=== PATIENT | male | born 1955 | race Caucasian/White ===

== ENCOUNTER 2019-12-30 19:17 | Inpatient (IN) ==
[2019-12-30] MEDS ORDERED: ASPIRIN 325 MG TABLET PO STA (19:42)
[2019-12-30] MEDS ORDERED: ONDANSETRON 4 MG/2 ML VIAL IV STA (19:50)
[2019-12-30] MEDS ORDERED: NITROGLYCERIN 2% OINT 1 INCH/GM PACK TOP STA (19:50)
[2019-12-30] MEDS ORDERED: ALUM/MAG/SIMETH/LIDO VISC 1:1 30 ML BOTTLE PO STA (19:50)
[2019-12-30] MEDS ORDERED: MORPHINE 4 MG/1 ML VIAL IV STA (19:50)
[2019-12-30 19:59] LABS: Basophils # 0.1 10*3/uL (0.0-0.2); Basophils % 0.4 % (0.0-0.8); Eosinophils # 0.1 10*3/uL (0.0-0.87); Eosinophils % 0.4 % (0.00-10.9); Hematocrit 40.6 VOL% (42.0-52.0); Hemoglobin 14.1 GM/DL (14.0-18.0); Immature Granulocytes % 0.6 %; Immature Granulocytes Absolute 0.08 #; Lymphocytes # 3.2 10*3/uL (1.4-4.0); Lymphocytes % 24.4 % (21.2-54.2); Mean Corpuscular HGB Conc 34.7 GM/DL (32-36); Mean Platelet Volume 10.1 FL (9.6-12.0); Monocytes % 7.6 % (1.7-12.7); Neutrophils % 66.6 % (38.7-73.9); Platelet Count 186 T/CUMM (130-400); Red Blood Count 4.32 MC/CUMM (3.8-5.5); Red Cell Distribution Width 12.5 % (9.3-17.3); White Blood Count 13.1 T/CUMM (4-12)
[2019-12-30 20:08] LABS: PT Patient Result 10.3 SECS (9.8-11.9)
[2019-12-30 20:25] LABS: Alanine Aminotransferase 64 U/L (16-61); Albumin 4.1 G/DL (3.4-5.0); Alkaline Phosphatase 86 U/L (45-117); Aspartate Amino Transferase 388 U/L (0-37); Bilirubin,Total < 0.39 MG/DL (0.2-1.0); Blood Urea Nitrogen 7 MG/DL (7-18); CKMB % 10.5 %; Calcium 8.9 MG/DL (8.5-10.1); Estimated Glom Filtration Rate 86 ML/MIN; Glucose 92 MG/DL (74-106); Osmolality,Calculated 270.8 MOS/KG (273-304); Total Protein 6.6 G/DL (6.4-8.3)
[2019-12-30] MEDS ORDERED: ENOXAPARIN 100 MG/ML SYRINGE SUBCUT STA (20:35)
[2019-12-30] MEDS ORDERED: HEPARIN/NACL 0.9% 2 UNITS/ML 1,000 ML IV ONE (21:11)
[2019-12-30] MEDS ORDERED: LIDOCAINE 1% 20 ML VIAL ONE (21:11)
[2019-12-30] MEDS ORDERED: HYDROmorphone 2 MG/1 ML VIAL ONE (21:24)
[2019-12-30] MEDS ORDERED: MIDAZOLAM 2 MG/2 ML VIAL ONE (21:24)
[2019-12-30] MEDS ORDERED: BIVALIRUDIN 250 MG VIAL IV ONE (21:50)
[2019-12-30] MEDS ORDERED: TIROFIBAN 5,000 MCG/100 ML PREMIX IV ONE (21:52)
[2019-12-30] MEDS ORDERED: ENOXAPARIN 60 MG/0.6 ML SYRINGE ONE (21:55)
[2019-12-30] MEDS ORDERED: TIROFIBAN 5,000 MCG/100 ML PREMIX IV SCH (21:58)
[2019-12-30] MEDS ORDERED: TICAGRELOR 90 MG TABLET ONE (22:28)
[2019-12-30] MEDS ORDERED: NITROGLYCERIN SL 0.4 MG TABLET SL PRN (22:40)
[2019-12-30] MEDS ORDERED: ZALEPLON 5 MG CAPSULE PO PRN (22:40)
[2019-12-30] MEDS ORDERED: ONDANSETRON 4 MG/2 ML VIAL IV PRN (22:40)
[2019-12-30] MEDS ORDERED: SODIUM CHLORIDE 0.9% 1,000 ML IV SCH (23:00)
[2019-12-31] MEDS ORDERED: PNEUMOCOCCAL VACCINE (23 VALENT) 0.5 ML VIAL IM ONE (00:24)
[2019-12-31 00:43] LABS: CKMB % 10.3 %
[2019-12-31 00:45] LABS: Troponin I > 200.000 NG/ML (0.00-0.045)
[2019-12-31 02:09] LABS: Risk Ratio 6.18; VLDL CHOLESTEROL 53.4 MG/DL
[2019-12-31 02:12] LABS: Calcium 8.2 MG/DL (8.5-10.1); Osmolality,Calculated 272.7 MOS/KG (273-304)
[2019-12-31 02:23] LABS: Basophils % 0.4 % (0.0-0.8); Eosinophils % 0.2 % (0.00-10.9); Hemoglobin 12.3 GM/DL (14.0-18.0); Immature Granulocytes % 0.2 %; Immature Granulocytes Absolute 0.02 #; Lymphocytes # 2.2 10*3/uL (1.4-4.0); Lymphocytes % 23.1 % (21.2-54.2); Mean Corpuscular HGB Conc 34.2 GM/DL (32-36); Mean Platelet Volume 10.3 FL (9.6-12.0); Monocytes % 8.5 % (1.7-12.7); Neutrophils % 67.6 % (38.7-73.9); Platelet Count 164 T/CUMM (130-400); Red Blood Count 3.79 MC/CUMM (3.8-5.5); Red Cell Distribution Width 12.8 % (9.3-17.3); White Blood Count 9.5 T/CUMM (4-12)
[2019-12-31 02:31] LABS: CKMB % 9.8 %; Troponin I > 200.000 NG/ML (0.00-0.045)
[2019-12-31 05:44] LABS: CKMB % 7.8 %
[2019-12-31] MEDS: ASPIRIN EC 81 MG TABLET PO SCH (08:37)
[2019-12-31] MEDS: TICAGRELOR 90 MG TABLET PO SCH ×2 (08:37→20:45)
[2019-12-31] MEDS: PANTOPRAZOLE 40 MG TABLET PO SCH (08:38)
[2019-12-31] MEDS: lisinopriL 2.5 MG TABLET PO SCH (08:42)
[2019-12-31] MEDS: carvediloL 3.125 MG TABLET PO SCH ×2 (08:42→20:46)
[2019-12-31] MEDS ORDERED: ENOXAPARIN 40 MG/0.4 ML SYRINGE SUBCUT SCH (09:00)
[2019-12-31 13:31] LABS: Hematocrit 33.6 VOL% (42.0-52.0); Hemoglobin 11.6 GM/DL (14.0-18.0)
[2019-12-31] MEDS: ROSUVASTATIN 20 MG TABLET PO SCH (20:45)
[2020-01-01 06:17] LABS: Calcium 8.4 MG/DL (8.5-10.1); Osmolality,Calculated 274.7 MOS/KG (273-304)
[2020-01-01] MEDS ORDERED: POTASSIUM CHLORIDE 20 MEQ TABLET PO ONE (07:01)
[2020-01-01] MEDS: ASPIRIN EC 81 MG TABLET PO SCH (09:14)
[2020-01-01] MEDS: lisinopriL 2.5 MG TABLET PO SCH (09:14)
[2020-01-01] MEDS: PANTOPRAZOLE 40 MG TABLET PO SCH (09:14)
[2020-01-01] MEDS: carvediloL 3.125 MG TABLET PO SCH ×2 (09:14→21:59)
[2020-01-01] MEDS: TICAGRELOR 90 MG TABLET PO SCH ×2 (09:14→21:59)
[2020-01-01] MEDS: ROSUVASTATIN 20 MG TABLET PO SCH (21:59)
[2020-01-02 07:36] LABS: Basophils # 0.1 10*3/uL (0.0-0.2); Basophils % 0.6 % (0.0-0.8); Eosinophils % 0.5 % (0.00-10.9); Hemoglobin 11.1 GM/DL (14.0-18.0); Immature Granulocytes % 0.4 %; Immature Granulocytes Absolute 0.03 #; Lymphocytes # 2.3 10*3/uL (1.4-4.0); Lymphocytes % 27.9 % (21.2-54.2); Mean Corpuscular HGB Conc 33.6 GM/DL (32-36); Mean Corpuscular Volume 95.1 FL (87-102); Mean Platelet Volume 10.9 FL (9.6-12.0); Monocytes % 9.1 % (1.7-12.7); Neutrophils % 61.5 % (38.7-73.9); Platelet Count 151 T/CUMM (130-400); Red Blood Count 3.47 MC/CUMM (3.8-5.5); Red Cell Distribution Width 12.8 % (9.3-17.3); White Blood Count 8.2 T/CUMM (4-12)
[2020-01-02 07:42] LABS: Calcium 8.4 MG/DL (8.5-10.1); Osmolality,Calculated 277.5 MOS/KG (273-304)
[2020-01-02] MEDS: lisinopriL 2.5 MG TABLET PO SCH (09:32)
[2020-01-02] MEDS: carvediloL 3.125 MG TABLET PO SCH (09:32)
[2020-01-02] MEDS: TICAGRELOR 90 MG TABLET PO SCH (09:33)
[2020-01-02] MEDS: PANTOPRAZOLE 40 MG TABLET PO SCH (09:33)
[2020-01-02] MEDS: ASPIRIN EC 81 MG TABLET PO SCH (09:33)
[2020-01-02 11:18] VITALS: BP 91/59
== END 2020-01-02 12:46 | disposition home or self-care (01) | DRG 247 ==
LOC: N.EDINP 19:17 → N.ED 19:17 → N.TELES 21:20 → OBSVTOIN 21:50 → N.TELES 23:03
PROVIDERS: ADMIT Internal Medicine Cardiovascular Disease; ATTEND Internal Medicine Cardiovascular Disease
PROC: CLCCHCL (ICD-10-PCS; 2019-12-30 21:45)

== ENCOUNTER 2020-06-23 17:10 | Observation (INO) ==
[2020-06-23 17:54] LABS: Basophils # 0.1 10*3/uL (0.0-0.2); Basophils % 0.5 % (0.0-0.8); Eosinophils % 0.2 % (0.00-10.9); Hematocrit 39.7 VOL% (42.0-52.0); Hemoglobin 13.6 GM/DL (14.0-18.0); Immature Granulocytes % 0.4 %; Immature Granulocytes Absolute 0.05 #; Lymphocytes # 2.3 10*3/uL (1.4-4.0); Lymphocytes % 19.4 % (21.2-54.2); Mean Corpuscular HGB Conc 34.3 GM/DL (32-36); Mean Platelet Volume 10.3 FL (9.6-12.0); Monocytes % 6.7 % (1.7-12.7); Neutrophils % 72.8 % (38.7-73.9); Platelet Count 167 T/CUMM (130-400); Red Blood Count 4.27 MC/CUMM (3.8-5.5); White Blood Count 11.6 T/CUMM (4-12)
[2020-06-23 18:06] LABS: INR 1.1; PT Patient Result 12.2 SECS (9.8-11.9)
[2020-06-23 18:09] LABS: Albumin 4.4 G/DL (3.4-5.0); Bilirubin,Total 0.4 MG/DL (0.2-1.0); Calcium 9.1 MG/DL (8.5-10.1); Osmolality,Calculated 279.4 MOS/KG (273-304); Potassium 3.9 MMOL/L (3.5-5.1); Total Protein 7.2 G/DL (6.4-8.2)
[2020-06-23] MEDS ORDERED: ALUM/MAG/SIMETH/LIDO VISC 1:1 30 ML BOTTLE PO STA (18:31)
[2020-06-23] MEDS ORDERED: GLUCAGON 1 MG VIAL IM PRN (19:12)
[2020-06-23] MEDS ORDERED: DEXTROSE 50% 25 GM/50 ML VIAL IV PRN (19:12)
[2020-06-23] MEDS ORDERED: NITROGLYCERIN SL 0.4 MG TABLET SL PRN (19:14)
[2020-06-23] MEDS ORDERED: ENOXAPARIN 40 MG/0.4 ML SYRINGE SUBCUT SCH (21:00)
[2020-06-23] MEDS ORDERED: ROSUVASTATIN 20 MG TABLET PO SCH (21:00)
[2020-06-23] MEDS: TICAGRELOR 90 MG TABLET PO SCH (21:46)
[2020-06-23] MEDS: carvediloL 3.125 MG TABLET PO SCH (21:46)
[2020-06-23] MEDS: PANTOPRAZOLE 40 MG VIAL IV SCH (21:46)
[2020-06-23] MEDS: CLORAZEPATE 3.75 MG TABLET PO SCH (21:46)
[2020-06-24 07:12] LABS: Basophils % 0.5 % (0.0-0.8); Eosinophils % 0.5 % (0.00-10.9); Hematocrit 36.9 VOL% (42.0-52.0); Hemoglobin 12.9 GM/DL (14.0-18.0); Immature Granulocytes % 0.3 %; Immature Granulocytes Absolute 0.02 #; Lymphocytes # 2.6 10*3/uL (1.4-4.0); Lymphocytes % 33.1 % (21.2-54.2); Mean Corpuscular Volume 91.8 FL (87-102); Mean Platelet Volume 10.4 FL (9.6-12.0); Monocytes % 9.1 % (1.7-12.7); Neutrophils % 56.5 % (38.7-73.9); Platelet Count 142 T/CUMM (130-400); Red Blood Count 4.02 MC/CUMM (3.8-5.5); Red Cell Distribution Width 12.1 % (9.3-17.3); White Blood Count 7.9 T/CUMM (4-12)
[2020-06-24 07:40] LABS: Calcium 8.9 MG/DL (8.5-10.1); Osmolality,Calculated 282.1 MOS/KG (273-304); Potassium 3.8 MMOL/L (3.5-5.1); Risk Ratio 2.51; VLDL CHOLESTEROL 37.6 MG/DL
[2020-06-24] MEDS: PANTOPRAZOLE 40 MG VIAL IV SCH (08:59)
[2020-06-24] MEDS ORDERED: lisinopriL 2.5 MG TABLET PO SCH (09:00)
[2020-06-24] MEDS ORDERED: VENLAFAXINE XR 75 MG CAPSULE PO SCH (09:00)
[2020-06-24] MEDS ORDERED: ASPIRIN EC 81 MG TABLET PO SCH (09:00)
[2020-06-24] MEDS ORDERED: PANTOPRAZOLE 40 MG TABLET PO SCH (09:00)
[2020-06-24] MEDS: CLORAZEPATE 3.75 MG TABLET PO SCH ×2 (11:58→16:40)
[2020-06-24] MEDS: TICAGRELOR 90 MG TABLET PO SCH (11:58)
[2020-06-24] MEDS: carvediloL 3.125 MG TABLET PO SCH (11:58)
[2020-06-24 15:20] VITALS: BP 111/61
[2020-06-24] MEDS ORDERED: DONEPEZIL 10 MG TABLET PO SCH (21:00)
== END 2020-06-24 16:17 | disposition home or self-care (01) ==
LOC: N.ED 17:10 → N.EDINP 17:10 → N.TELEN 20:20 → N.EDINP 20:20
PROVIDERS: ADMIT Family Medicine; ATTEND Family Medicine